=== PATIENT | female | born 1965 | race Caucasian/White ===

== ENCOUNTER → 2018-08-05 | Outpatient (CLI) | payer OTHER ==
[~2018-08-05] VITALS: Ht 160 cm; Wt 81.2 kg
[~2018-08-05] MED LIST: ALPRAZOLAM 0.0.25 MG PO; ALPRAZOLAM 0.50.5 M1 PO; AMBIEN PO; AMBIENCR; BACTRIM; BENTYL 20 MG TA20 M1 PO; BODY; CARISOPRODOL PO; CIPROFLOXACIN500 M1 PO; COPAXONE20 M1 SC; CRANBERRY400 MG PO; EXCEDRIN BACK; HYDROCODON-ACE1 EACH PO; HYOSCYAMINE0.125 M2 PO; LEVOTHYROXIN0.125 M2 PO; LISINOPRIL20 MG PO; LORTAB 5-500 T1 EAC1; LYRICA300 MG PO; METAXALONE800 MG PO; OCREVUS300 MG/10 IV; OXYBUTYNIN ER 55 MG PO; PERCOCET 5-3251 EACH PO; PREMARIN30 GM TOP; PROTONIX 20 MG20 M1 PO; ROVIN-CF OF TA1 EACH PO; SAVELLA50 MG PO; SINGULAIR 10 MG10 M1 PO; SOLU-MEDROL500 MG IV; STOOL SOFTENER50 MG PO; SYMBICORT80 MCG/4.1 INH; SYNTHROID100 MC1 PO; TIZANIDINE HCL4 MG PO; TRAMADOL 50 MG50 MG PO; TRAMADOL PO; ULTRAM 50MG TAB50 MG PO; VENTOLIN HFA 1818 GM INH; VITAMIN D 5050000 I1; ZANAFLEX4 M1 PO; ZOLPIDEM TART12.5 M1 PO; [UNRECOGNIZED DRUG - OTHER]
[2018-08-05 09:33] VITALS: BP 134/88
--- NOTE | 2018-08-05 10:21 | NUR ---
Pain Clinic Assessment: 1. History of Osteoarthritis: Left Upper Extremity Right Upper Extremity History of Rheumatoid Arthritis: Not Applicable 2. Height: 5 ft. 3 in. 160.0 cm. Weight: 179.0 lb. oz. 81.194 kg. Patient's BMI: 31.7 3. Vital Signs: BP: 134/88 Pulse: 76 Resp: 14 Temp: 02 Sat: 100 ECG Mon: 4. Pain Intensity: 2 TODAY 6-7 AVG 5. Fall Risk: Dizziness: N Needs help standing or walking: N Fallen in the last 3 months: N Fall risk comments: 6. Patient on Blood Thinner: None 7. History of Hypertension: Y 8. Opioid Therapy greater than 6 weeks: N Opiate Contract Signed: 9. Risk Assessment Tool Provided: 10. Functional Assessment Tool: LOW 11. Recreational Drug Use: Never Drug Type: Tobacco Use: Former Smoker Tobacco Type: Cigarettes Amount or Packs/day: 1 1/2 How Many Years: 20 Alcohol Use: Yes Frequency: Special Occasions Quant: 1-2
--- NOTE | 2018-08-13 09:24 | HPC ---
[facility] [place] [address] PAIN MANAGEMENT CONSULTATION Name: CAROL BILLINGSLEY [id number] Admission: 08/05/18 ������������������ Attend Phys: Neo Wild DO Discharge: ������������������ Date of : 63 Report #: [id number] THIS REPORT FOR: //name// CC: Papo Wise DATE OF SERVICE: 08/05/2018 REFERRING PHYSICIAN: Dr. Sharla Wise. CHIEF COMPLAINT: Left lower quadrant abdominal pain. HISTORY OF PRESENT ILLNESS: As you know, the patient is a 53-year-old female with longstanding history of left lower quadrant abdominal pain that has been persistent for years. She has sought evaluation by multiple physicians. This has been present since 2014. She describes pain as periodic, shooting, throbbing, sharp and stabbing. She indicates pain is exacerbated with food intake and bowel movements, has improved with nothing to date. She has sought evaluation through Gastroenterology who believes her symptoms are related to the sigmoid colon, which would correlate to the symptoms the patient is experiencing. There is nothing in the lumbar spine that would be considered a potential exacerbator of her symptoms nor any concerning findings in physical examination in the past, nor at this visit. She was referred to our clinic to discuss the possibility of some type of block to assist with pain control. PAST MEDICAL HISTORY: 1. Chronic abdominal pain, left lower quadrant. 2. Claustrophobia. 3. Chronic diarrhea. 4. Diverticulosis. 5. Fibromyalgia. 6. Hemorrhoids. 7. Hyperlipidemia. 8. Hypertension. 9. Hypothyroidism. 10. Irritable bowel syndrome. 11. History of nephrolithiasis. 12. Migraines. 13. Multiple sclerosis. 14. Shingles. PAST SURGICAL HISTORY: 1. Breast biopsy. 2. Cholecystectomy. [facility] [address] [place] [address] PAIN MANAGEMENT CONSULTATION Name: BILLINGSLEY,CAROL L Room #: REG EVELYNE Acevedo#: [id number] Admission: 08/05/18 ������������������ Attend Phys: Neo Wild DO Discharge: ������������������ Date of : 63 Report #: [id number] 3. Colonoscopy. 4. Dilation and curettage. 5. Excision of pilonidal cyst. 6. Gastric banding. 7. Lysis of adhesions laparoscopically. 8. Vaginal hysterectomy. SOCIAL HISTORY: The patient denies tobacco. At present, she is a former smoker. Denies IV or illicit drug use. Denies any chronic alcohol use. She is unaccompanied today. IMAGING: There is no new imaging available. PQRS: The patient has known arthritic changes of the lumbar spine. No rheumatoid arthritis. She is not a fall risk, has not had a fall in the last 3 months. She is placing pain today at 2-6/10. She is not on opioids through our system. She has a low opiate addiction potential. Pain impact score is rated at 60/70, near complete interference of daily activities secondary to pain. PHYSICAL EXAMINATION: VITAL SIGNS: Blood pressure 134/88, pulse 76, respiratory rate 14 and unlabored. The patient is 100% on room air. Height 5 feet 3 inch tall, weight 179 pounds, BMI calculated 31.7. GENERAL: Well-developed, well-nourished, well-hydrated 53-year-old female, appearing stated age, pain is rated at anywhere from 2-6/10 depending on activity. HEENT: Normocephalic, atraumatic. Pupils equal, round, reactive to light. Extraocular muscles are intact. Sclerae nonicteric without injection. NEUROLOGIC: Cranial nerves 2-12 grossly intact. Speech is fluent. LUNGS: Clear, no wheeze, rhonchi or rales. CARDIOVASCULAR: Regular. No appreciable gallop or rub. ABDOMEN: Soft, tender to palpation in left lower quadrant, normal bowel sounds are present. EXTREMITIES: Show no clubbing, no cyanosis and no edema. MUSCULOSKELETAL: There is no radicular component of the patient's pain. Seated straight leg raising negative. Supine straight leg raising negative. Annel test negative. Modified Gaenslen's positive for axial low back pain without radiation of symptoms into the area. There is mild palpatory tenderness bilaterally over the distribution of the iliohypogastric nerve distribution. There is no pain over the genitofemoral nerve bilaterally. No radiation of symptoms in classic neuropathic fashion. ASSESSMENT: 1. Chronic left lower quadrant abdominal pain. 2. Pain reference from sigmoid colon. 3. Chronic abdominal pain. [address] [address] PAIN MANAGEMENT CONSULTATION Name: JOSE CRUZCAROL Makenzie Room #: ADELA Acevedo#: [id number] Admission: 08/05/18 ������������������ Attend Phys: Neo Wild DO Discharge: ������������������ Date of : 63 Report #: [id number] PLAN: 1. Based on the patient's description of pain, exacerbators of her symptoms and the lack of any neuropathic component to her symptoms, likely source of the patient's pain is reference pain from the colon/sigmoid area. The patient is being evaluated by Gastroenterology in regards to sources of pain. The patient indicates her pain is exacerbated with bowel movements and changes in those bowel movements as well as certain activities. This would relate more to the peristaltic type of activity of the lower colon. There is no block that can be performed to provide any long-term benefit. We do not perform neurolytic blockade of the mesenteric plexus unless the patient is suffering from a terminal illness with less than 6 weeks to live and then a celiac plexus ablations as well as mesenteric ablations of the sympathetic chain can be performed. This would leave the patient with severe diarrhea and likely incontinence of bowel. These will not be performed on the patient as they will not provide any long-term benefit from a pain standpoint without significant complications. 2. It appears the patient has exacerbation of symptoms with bowel movements and cramping sensations that sound more like peristaltic issues. Recommend the use of Levsin, and she was provided a prescription today of that medication, Levsin, as you are aware, causes changes in the function of the peristaltic wave, which may improve the patient's overall pain. We gave her the Levsin 0.125 mg 1 tab p.o. b.i.d. p.r.n. when pain is present. She will follow up with a shop fitter in regards to efficacy of this medication. 3. We wish to thank the referring physician for the opportunity to see the patient in consultation. At this point, we from a pain management standpoint, do not have any interventional treatment that will perform any long-term benefit for the patient. Recommend follow up with Gastroenterology as this appears to be the source of the symptoms. We have effectively ruled out any musculoskeletal issues that would be causing her symptoms. We have ruled out iliohypogastric, ilioinguinal, genitofemoral branches of nerve entrapments on physical exam today, and there are no findings in the lumbar region that would cause distribution of symptoms the patient is experiencing. We again wish to thank you for the opportunity to see the patient in consultation. We wish her luck in finding the source of her symptoms. ��������������������������������������������� <ELECTRONICALLY SIGNED> ���������������������������������������� By: Neo Wild DO ��������������������������������������������� 08/13/18 0924 0826 0937 Neo Wild DO /nt
== END ==
LOC: PAIN 06:46
DX: R10.32 Left lower quadrant pain (principal); G89.29 Other chronic pain; E78.5 Hyperlipidemia, unspecified; I10 Essential (primary) hypertension; E03.9 Hypothyroidism, unspecified; G43.909 Migraine, unspecified, not intractable, without status migrainosus; Z90.49 Acquired absence of other specified parts of digestive tract; Z90.710 Acquired absence of both cervix and uterus

== ENCOUNTER → 2021-01-11 | Outpatient (CLI) | payer OTHER ==
[~2021-01-11] VITALS: Ht 160 cm; Wt 85.5 kg
[~2021-01-11] MED LIST changes: +COQ-10100 MG PO; +CRANBERRY500 M3 PO; +FASENRA PE30 MG/1 ML SUBQ; +FLONASE 0.05%50 MCG NARES; +IPRAT-ALBUT 0.5-3 ML INH; +MELATONIN10 M3 PO; +VALERIAN ROOT500 MG PO; +VITAMIN D32400 UNIT/ PO
[2021-01-11 11:08] VITALS: BP 134/88
--- NOTE | 2021-01-11 11:24 | NUR ---
Pain Clinic Assessment: 1. History of Osteoarthritis: Left Upper Extremity Right Upper Extremity History of Rheumatoid Arthritis: Not Applicable 2. Height: 5 ft. 3 in. 160.0 cm. Weight: 188.4 lb. oz. 85.458 kg. Patient's BMI: 33.4 3. Vital Signs: BP: 134/88 Pulse: 77 Resp: 16 Temp: 02 Sat: 98 ECG Mon: 4. Pain Intensity: 5 5. Fall Risk: Dizziness: N Needs help standing or walking: N Fallen in the last 3 months: N Fall risk comments: 6. Patient on Blood Thinner: None 7. History of Hypertension: Y 8. Opioid Therapy greater than 6 weeks: N Opiate Contract Signed: 9. Risk Assessment Tool Provided: 10. Functional Assessment Tool: LOW 11. Recreational Drug Use: Never Drug Type: Tobacco Use: Former Smoker Tobacco Type: Amount or Packs/day: How Many Years: Alcohol Use: Yes Frequency: Special Occasions Quant: 1
--- NOTE | 2021-01-18 09:03 | HPC ---
[facility] [address] [place] [address] PAIN MANAGEMENT CONSULTATION Name: CAROL BILLINGSLEY Room #: REG [facility]#: [id number] Admission: 01/11/21 Attend Phys: Neo Wild DO Discharge: Date of : 63 Report #: [id number] THIS REPORT FOR: cc: Sharla Wise Ernest A. MD Johnson, James E. DO ~ cc: Sharla Wise DO DATE OF SERVICE: 01/11/2021 CHIEF COMPLAINT: Left low back and buttock pain. HISTORY OF PRESENT ILLNESS: As you know, the patient is a pleasant 55-year-old female returning in followup visit with recurrence of left sacroiliac joint pain and dysfunction. The patient states she was doing very well until recently where her symptoms recurred after a long drive to [place]. She states that returning from [place], even stretching, rest and relaxation did not improve symptoms. She trialled [id number] medication without benefit. Once she failed the use of more conservative treatment options, she made an appointment with us to undergo left SI joint injection under fluoroscopic guidance. The patient had excellent improvement in symptoms with previous SI joint injections. She returns today in followup visit, denying any injury or trauma that may have led to the redevelopment of left SI joint dysfunction. ALLERGIES: SULFAMETHOXAZOLE AND TRIAMTERENE. CURRENT MEDICATIONS: Hyoscyamine, estrogen, albuterol, Symbicort, montelukast sodium, Bentyl, Ocrevus, lisinopril, vitamin B12, cranberry extract, alprazolam, pantoprazole, docusate sodium, omega-3 fish oil, tizanidine, and levothyroxine. SOCIAL HISTORY: The patient denies tobacco use. She is a former smoker. Denies IV or illicit drug use. Denies any chronic alcohol use. She is unaccompanied today. IMAGING: No new imaging available. PQRS: The patient has known arthritic changes of lumbar spine, bilateral SI joints, left greater than right. No rheumatoid arthritis. She is placing current pain intensity at 5/10. She is not a fall risk, has not had a fall in the last 3 months. She is not on blood thinners, but is treated for hypertension. She is on no opioids, has a low opioid addiction potential based on assessment tool. Pain impact remained at 35/70, moderate interference of daily activities secondary to pain. PHYSICAL EXAMINATION: VITAL SIGNS: Blood pressure 134/88, pulse 77, respiratory rate 16 and unlabored. The patient 98% on room air. Height 5 feet 3 inches tall, weight [address] [address] PAIN MANAGEMENT CONSULTATION Name: CAROL BILLINGSLEY Room #: REG [facility].#: [id number] Admission: 01/11/21 Attend Phys: Neo Wild DO Discharge: Date of : 63 Report #: [id number] 188.4 pounds, BMI calculated 33.4. GENERAL: Well-developed, well-nourished, well-hydrated 55-year-old female appearing stated age, pain is rated today 5/10. HEENT: Normocephalic, atraumatic. Pupils equal, round and responsive to light. Speech is fluent. EXTREMITIES: Show no clubbing, no cyanosis and no edema. MUSCULOSKELETAL: The patient has some palpatory tenderness over the paraspinal musculature of lower lumbar spine, no spinous process tenderness. There is significant tenderness over the SI joint on the left when compared to the right. Thigh thrust maneuver is positive on the left, negative on the right. Marcos's test is positive on the left, negative right. Fabere's test is positive on the left, negative right. ASSESSMENT: 1. Left sacroiliac joint dysfunction. 2. Left sacroiliac joint pain. 3. Chronic low back pain. PLAN: 1. The patient has returned today in followup visit with recurrence of left SI joint dysfunction secondary to her recent and long car ride to [place] and back. The patient states that they drove for 3 days solid each on the way out and on the way back. This along with all the activities while in [place] exacerbated her left SI joint pain. She returns requesting a left sacroiliac joint injection under fluoroscopic guidance. The patient has been advised risks and benefits of the procedure and given the findings on physical exam, it would be appropriate to trial an injection today. The patient was advised of the risks and the benefits, states understood and wished to proceed. 2. No medication changes made at today's visit. The patient will continue current medical therapy as prior prescribed. We will see the patient back in followup visit on an as needed basis for left SI joint dysfunction. I did advise the patient if she needs a second in the series, we will see her back in 30 days. I am hopeful the patient will see good and prolonged benefit with today's injection. PROCEDURE NOTE DESCRIPTION OF PROCEDURE: Left sacroiliac joint injection under fluoroscopic guidance. This is the first procedure of the second series that the patient is undergoing. After obtaining written consent, the patient was taken back to the fluoroscopy suite and placed in a prone position with a pillow under the pelvis to decrease the lumbar lordosis. The skin of the gluteal-sacral area overlying the left [address] [place] [address] PAIN MANAGEMENT CONSULTATION Name: CAROL BILLINGSLEY Makenzie [facility] #[facility] [id number] Admission: 01/11/21 Attend Phys: Neo Wild DO Discharge: Date of : 63 Report #: [id number] sacroiliac joint was prepped and draped in an aseptic fashion. A medial to lateral oblique projection allowed separation of the anterior and posterior branches of the joint space. The skin and subcutaneous tissue overlying the target site of injection was anesthetized using 3 mL of 1% lidocaine. A 22-gauge, 3-1/2-inch needle with a bent tip was directed into the inferior aspect of the sacroiliac joint using a posterior approach. A "giving way" at the needle hub was noted once the dorsal sacroiliac and interosseous ligaments were engaged. After negative aspiration for heme, a total of 0.5 mL of Omnipaque was injected, outlining the coin-shaped inferior recess of the joint. Provocation responses consisting of intense buttock pain were negative. After negative aspiration for heme, 3 mL of a solution containing 1 mL, 40 mg per mL, 40 mg total triamcinolone and 2 mL of bupivacaine 0.5% was slowly injected. The needle was then retracted approximately alf and the needle track was flushed with 1 mL of lidocaine 1%. Needle was then removed. A sterile bandage was placed over the injection site. There were no new sensory deficits present in the lower extremities. The heart rate, pulse oximetry and blood pressure were continuously monitored after the procedure. There were no apparent complications. The patient tolerated the procedure well and was carefully escorted to the recovery room in stable condition. The VAS was 5/10 before the procedure and 3/10 ten minutes after the procedure. After meeting discharge criteria, the patient was discharged home. <ELECTRONICALLY SIGNED> By: Neo Wild DO 01/18/21 0903 [id number] 1225 Neo Wild DO /nt
== END | disposition home or self-care (01) ==
LOC: PAIN 06:55
PROVIDERS: ATTEND Anesthesiology Pain Medicine
DX: M53.3 Sacrococcygeal disorders, not elsewhere classified (principal); G89.29 Other chronic pain; M54.59 Other low back pain; I10 Essential (primary) hypertension; M19.90 Unspecified osteoarthritis, unspecified site; Z98.890 Other specified postprocedural states; Z79.899 Other long term (current) drug therapy; Z88.2 Allergy status to sulfonamides